=== PATIENT | female | born 1945 | race Caucasian/White ===

== ENCOUNTER → 2016-02-17 | Outpatient (CLI) | payer MEDICARE, BC | LOC: MC.RAD 10:57 | DX: Z12.31 Encounter for screening mammogram for malignant neoplasm of breast (principal) ==

== ENCOUNTER 2016-09-23 08:53 | Outpatient (RCR) | payer MEDICARE, BC | END 2016-10-16 08:23 | disposition home or self-care (01) | LOC: MKS.ESL.PT 08:53 | DX: M25.561 Pain in right knee (principal) | CPT/HCPCS: G8978-GP; G8979-GP ==

== ENCOUNTER → 2017-03-12 | Outpatient (CLI) | payer MEDICARE, BC | LOC: MC.RAD 11:15 | DX: Z12.31 Encounter for screening mammogram for malignant neoplasm of breast (principal) ==

== ENCOUNTER → 2017-03-15 | Outpatient (CLI) | payer MEDICARE, BC | LOC: COL.RAD 09:44 | DX: R10.32 Left lower quadrant pain (principal); K57.30 Diverticulosis of large intestine without perforation or abscess without bleeding; Z01.812 Encounter for preprocedural laboratory examination; I10 Essential (primary) hypertension; Z90.49 Acquired absence of other specified parts of digestive tract; Z90.710 Acquired absence of both cervix and uterus | CPT/HCPCS: Q9967 ==

== ENCOUNTER → 2018-05-04 | Outpatient (CLI) | payer MEDICARE, BC | LOC: MC.RAD 10:58 | DX: Z12.31 Encounter for screening mammogram for malignant neoplasm of breast (principal) ==

== ENCOUNTER 2018-10-23 10:32 | Emergency (ER) | payer MEDICARE, BC ==
[~2018-10-23] VITALS: Ht 167.6 cm; Wt 96.8 kg
[2018-10-23] MEDS ORDERED: CRUTCHES MC (12:48)
[2018-10-23 13:31] VITALS: BP 141/66; PULSE 69; TEMP 97.2
[2018-10-23] MEDS ORDERED: SYNTHROID 0.0.025 MG PO (14:13)
== END 2018-10-23 13:31 | disposition home or self-care (01) ==
LOC: COL.ER 10:32
DX: S92.352A Displaced fracture of fifth metatarsal bone, left foot, initial encounter for closed fracture (principal); X50.1XXA Overexertion from prolonged static or awkward postures, initial encounter; Y92.219 Unspecified school as the place of occurrence of the external cause
CPT/HCPCS: Q4045

== ENCOUNTER → 2019-11-30 | Outpatient (CLI) | payer MEDICARE, BC ==
[~2019-11-30] MED LIST: CRUTCHES MC; SYNTHROID 0.0.025 MG PO
== END ==
LOC: MC.RAD 15:54
DX: Z12.31 Encounter for screening mammogram for malignant neoplasm of breast (principal)

== ENCOUNTER 2020-10-14 08:30 | Emergency (ER) | payer MEDICARE, BC ==
[~2020-10-14] VITALS: Ht 167.6 cm; Wt 95.0 kg
[2020-10-14 08:40] VITALS: PULSE 63; TEMP 97.1
[2020-10-14] MEDS ORDERED: TOBRADEX EYE DRO5 ML OP (08:40)
[2020-10-14] MEDS ORDERED: AMOXICILLIN 8751 TAB PO (09:29)
[2020-10-14 09:42] VITALS: BP 156/87
== END 2020-10-14 09:43 | disposition home or self-care (01) ==
LOC: COL.ER 08:30
DX: S02.2XXA Fracture of nasal bones, initial encounter for closed fracture (principal); S01.511A Laceration without foreign body of lip, initial encounter; W01.198A Fall on same level from slipping, tripping and stumbling with subsequent striking against other object, initial encounter; Y93.K1 Activity, walking an animal; Y92.480 Sidewalk as the place of occurrence of the external cause

== ENCOUNTER → 2020-12-26 | Outpatient (CLI) | payer MEDICARE, BC ==
[~2020-12-26] MED LIST changes: +AMOXICILLIN 8751 TAB PO; +TOBRADEX EYE DRO5 ML OP
== END ==
LOC: MC.RAD 09:38
DX: Z12.31 Encounter for screening mammogram for malignant neoplasm of breast (principal)

== ENCOUNTER → 2023-05-18 | Outpatient (CLI) | payer MEDICARE, BC | LOC: MC.RAD 09:53 | DX: Z12.31 Encounter for screening mammogram for malignant neoplasm of breast (principal) ==

== ENCOUNTER 2023-08-16 08:12 | Outpatient (RCR) | payer MEDICARE, BC | END 2023-09-08 | disposition home or self-care (01) | LOC: WSST | DX: R13.10 Dysphagia, unspecified (principal) ==

== ENCOUNTER 2023-10-08 10:27 | Day surgery (SDC) | payer MEDICARE, BC ==
[~2023-10-08] VITALS: Ht 167.6 cm; Wt 88.0 kg
[~2023-10-08 10:27] MED LIST changes: +LR 1,000 ML IV SCH; +Ondansetron 4 MG/2 ML VIAL IV PRN
[2023-10-08] MEDS ORDERED: PROTONIX20 MG PO (11:27)
[2023-10-08] MEDS ORDERED: VITAMIN D250 MCG PO (11:28)
[2023-10-08] MEDS ORDERED: INTERMEZZO SL (11:29)
[2023-10-08 11:32] VITALS: BP 95/75; PULSE 77; TEMP 97.4
[2023-10-08] MEDS ORDERED: Lidocaine PF 2% (20 MG/ML) 5 ML VIAL ONE (11:55)
[2023-10-08 13:10] VITALS: BP 108/57; PULSE 63; TEMP 97.6
[2023-10-08 13:30] VITALS: BP 111/82; PULSE 57
--- NOTE | 2023-10-08 16:23 | NUR ---
1310- PT BACK FROM ENDO PROCEDURE TO BAY 7 VIA CART. PT AMBULATED FROM CART TO RECLINER WITH ASSISTANCE. MONITORS ON AND ALARMS SET. VSS. REPORT RECEIVED FROM ROXANNE MEADOWS. CALL LIGHT WITHIN REACH. AT CHAIR SIDE. PT REQUESTING FOOD AND DRINK. NO OTHER NEEDS AT THIS TIME. 1330- PT TAKING FOOD AND DRINK WELL. NO COMPLICATIONS NOTED. 1340- WENT OVER DISCHARGE PAPERWORK WITH PT. NO QUESTIONS AT THIS TIME. 1400- PT TRANSFERRED OUT OF HOSPITAL VIA WHEELCHAIR TO OWN PERSONAL VEHICLE DRIVEN BY .
== END 2023-10-08 14:00 | disposition home or self-care (01) ==
LOC: SDCO 10:27
DX: K56.699 Other intestinal obstruction unspecified as to partial versus complete obstruction (principal); K57.30 Diverticulosis of large intestine without perforation or abscess without bleeding; K59.00 Constipation, unspecified; E66.9 Obesity, unspecified; Z90.49 Acquired absence of other specified parts of digestive tract
CPT/HCPCS: J2704; J7120